=== PATIENT | female | born 1955 | race Caucasian/White ===

== ENCOUNTER 2023-09-23 09:03 | Outpatient (AMB) | payer MEDICARE, MEDICAID, SELFPAY ==
--- NOTE | 2023-09-23 09:05 | A.OFFVIS_ITS ---
Intake Vital Signs 3 09/23/23 09:11 Height 5 ft 4 in Weight 123 lb 2 oz BMI 21.1 BP 121/69 Blood Pressure Location Rt brachial Position Sitting Pulse 94 Pulse Source Pulse Oximeter Pulse Oximetry (%) 95 Oxygen Delivery Method Room Air Intake Visit Reasons: Pain left subcostal upper abd/LMOVM Intake Note: Pain today 06/27 Electronic Game Developer Required: No Accompanied by: Self / Same As Patient Allergies No Known Allergies Allergy (Verified 09/23/23 09:13) HPI Pain left subcostal upper abd/LMOVM 2 HPI0 Details Patient is a pleasant 67 years old female with prior history of a robotic left upper lobectomy and mediastinal lymphadenectomy for a 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 Per referral intake, her postoperative course following her surgery was complicated by extensive subcutaneous emphysema requiring bilateral infraclavicular blowhole creation, right sided pneumothorax requiring chest tube placement with severe respiratory distress and PEA arrest and HCAP. Since then she has recovered and has been followed by CT scan every 3 months without evidence of recurrence or new disease. She has upcoming lung CT scan this month and thereafter will be biannually. Patient reports recent cold symptoms and bronchitis 2-3 weeks ago. She was treated with albuterol inhaler, prednisone and Musinex with good results. Her current pain is localized to mid back with anterior radiation to her abdomen, worse on the left subcostal area She was treated for neurogenic pain with gabapentin, Tylenol, NSAIDs, heating pad with mild pain relief. She recently tried cannabis edible with almost complete resolution of her pain symptoms. She was referred to us by Thoracic Surgeon Dr. Méndez for interventional treatments for possible injection. Denies any fever, weight loss, shortness of breaths, chest pain, cough, hemoptysis, dizziness, numbness, tinging, rash, swelling or itching. Location Upper back radiates to upper abdominal area bilaterally, worse on the left Duration Chronic pain for >1 year Characteristics of symptom or complaint Dull, aching, stabbing, burning Aggravating or associated factors Movements, pulling, lifting, coughing, side sleeping Relieving factors Heating pad, Tylenol, Naproxen, gabapentin, cannabis edible Treatment PT in 2021, no relief PFSH Medical History (Updated 09/23/23 @ 20:55 by JIM Jackson) Neurogenic pain Cancer of upper lobe of left lung Bipolar 1 disorder Social History Alcohol intake: current Alcohol intake frequency: holidays/special occasions only Patient Tobacco Use Status: Former Tobacco user Review of Systems Const All systems reviewed & are unremarkable except as noted in HPI and below Physical Exam Vital Signs: Last Vital Signs Pulse 94 09/23/23 09:11 BP 121/69 09/23/23 09:11 Pulse Ox 95 09/23/23 09:11 Oxygen Delivery Method Room Air 09/23/23 09:11 BMI result Body Mass Index 21.1 General: Appears afebrile. Alert and oriented. Mood and affect appropriate. Follows and participates in conversation appropriately.+post nasal drip Able to transition from sit to stand unassisted. Ambulates with bilaterally normal heel strike and toe off. Neck Neck: Yes full ROM, Yes no lymphadenopathy, Yes supple, No anterior neck swelling, Yes no JVD, No prominent supraclavicular fat pad and No prominent dorsocervical fat pad Chest Other: Wounds are well healed with normal scarring. Tenderness to palpation in the left thoracic cage along the T6-T8 intercostal nerves. Chest palpation & inspection: normal inspection of the chest, normal palpation of entire chest wall, no crepitus, no localized rib tenderness, no tenderness and No rash Breast/axilla palpation: no axillary lymphadenopathy Resp Effort & Inspection: normal respiratory effort, able to speak in complete sentences, no audible wheezes, Actively coughing Quality: productive, no respiratory distress and symmetric chest movement Back/Spine/Pelvis Cervical Spine: cervical ROM normal and No Cervical spine tenderness Thoracic/Lumbar Spine: thoracic and lumbar spine normal to inspection, Thoracic/lumbar spine scar(s), thoraco-lumbar ROM normal, No paraspinal muscle tenderness, No thoracic spinal tenderness and No lumbar spinal tenderness Results Reviewed Results Reviewed: Assessment & Plan Assessment & Plan (1) Neurogenic pain: Code(s): M79.2 - Neuralgia and neuritis, unspecified (2) Muscle spasm: Code(s): M62.838 - Other muscle spasm (3) Chronic pain syndrome: Code(s): G89.4 - Chronic pain syndrome (4) Intercostal neuralgia: Code(s): G58.8 - Other specified mononeuropathies (5) Post-thoracotomy pain syndrome: Code(s): G89.12 - Acute post-thoracotomy pain Plan Discussed interventional treatments for intercostal neurogenic and post- thoracotomy pain syndrome. Patient is hesitant towards injections and would like to consider medical management. Scripts sent for duloxetine, baclofen, lidocaine patches, and diclofenac potassium. Side effects, precautions and administration times were discussed with patient in greater detail. If no relief, will consider left T12-L1 diagnostic intercostal nerve block. All questions and concerns have been answered and patient agreed with the plan. Follow up for medication review and sooner as needed. Medications: New 2 duloxetine 30 mg PO DAILY 30 days 30 caps 0RF pain G89.4 - Chronic pain syndrome, M62.838 - Other muscle spasm, M79.2 - Neuralgia and neuritis, unspecified lidocaine 5% leave on most painful area for up to 12 hrs topically daily; 30 days 30 ea 0RF G58.8 - Other specified mononeuropathies, G89.4 - Chronic pain syndrome, M79.2 - Neuralgia and neuritis, unspecified diclofenac potassium Take it with food and full glass of water. Avoid other NSAIDs. 50 mg PO BID 30 days PRN 60 tabs 0RF pain G89.12 - Acute post-thoracotomy pain, G89.4 - Chronic pain syndrome, M79.2 - Neuralgia and neuritis, unspecified baclofen 10 mg PO BID 30 days PRN 60 tabs 0RF muscle spasm M62.838 - Other muscle spasm, M79.2 - Neuralgia and neuritis, unspecified Coding Level of Care Code New Pt Level 4 (80040) Diagnoses Neurogenic pain M79.2 Muscle spasm M62.838 Chronic pain syndrome G89.4 Intercostal neuralgia G58.8 Post-thoracotomy pain syndrome G89.12
[2023-09-23 09:11] VITALS: BP 121/69; PULSE 94; O2SAT 95; BMI 21.1
== END 2023-09-23 09:39 | disposition home or self-care (01) ==
PROVIDERS: PCP Internal Medicine; Visit Provider Nurse Practitioner Family
DX: M79.2 Neuralgia and neuritis, unspecified (principal); M62.838 Other muscle spasm; G89.4 Chronic pain syndrome; G89.12 Acute post-thoracotomy pain
CPT/HCPCS: 99204

== ENCOUNTER → 2023-09-23 09:03 | Outpatient (BNVA) | payer MEDICARE, MEDICAID, SELFPAY | PROVIDERS: PCP Internal Medicine; Visit Provider Nurse Practitioner Family | DX: G89.4 Chronic pain syndrome (principal); M62.838 Other muscle spasm; G58.8 Other specified mononeuropathies; G89.12 Acute post-thoracotomy pain | CPT/HCPCS: 99202 ==

== ENCOUNTER 2023-10-21 08:39 | Outpatient (AMB) | payer MEDICARE, MEDICAID, SELFPAY ==
[2023-10-21 08:39] VITALS: BMI 22.3
--- NOTE | 2023-10-21 08:39 | MHC.OFFVIS ---
Intake Vital Signs 10/21/23 08:39 Height 5 ft 4 in Weight 130 lb BMI 22.3 Intake Visit Reasons: MEDICATION FOLLOW UP/OK PER RUY/lvm Wellness Spa Manager Required: No Accompanied by: Self / Same As Patient Allergies No Known Allergies Allergy (Verified 10/21/23 08:40) HPI HPI Comments History of Present Illness Details Patient presents today via telehealth encounter to review medications. Patient presents with coughing and reports dyspnea with minimal exertion. She reports seeing her soft work cigar machine operator recently and was prescribed Albuterol nebulizer treatments. She denies any fever, dizziness, chest pain or pressure, headache or shortness of breaths at rest. Patient reports baclofen has not been effective so she stopped it. Reports minimal response with duloxetine but has not tried lidocaine patches yet. She reports cannabis edible has been the most effective so far but she does not want continuous use of it. Patient requests to proceed with intercostal nerve block which we have scheduled for 11/05/[address] Arango. 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 Per referral intake, her postoperative course following her surgery was complicated by extensive subcutaneous emphysema requiring bilateral infraclavicular blowhole creation, right sided pneumothorax requiring chest tube placement with severe respiratory distress and PEA arrest and HCAP. Since then she has recovered and has been followed by CT scan every 3 months without evidence of recurrence or new disease. She has upcoming lung CT scan this month and thereafter will be biannually. Patient reports recent cold symptoms and bronchitis 2-3 weeks ago. She was treated with albuterol inhaler, prednisone and Musinex with good results. Her current pain is localized to mid back with anterior radiation to her abdomen, worse on the left subcostal area She was treated for neurogenic pain with gabapentin, Tylenol, NSAIDs, heating pad with mild pain relief. She recently tried cannabis edible with almost complete resolution of her pain symptoms. She was referred to us by Thoracic Surgeon Dr. Méndez for interventional treatments for possible injection. Denies any fever, weight loss, shortness of breaths, chest pain, cough, hemoptysis, dizziness, numbness, tinging, rash, swelling or itching. Location Upper back radiates to upper abdominal area bilaterally, worse on the left Duration Chronic pain for >1 year Characteristics of symptom or complaint Dull, aching, stabbing, burning Aggravating or associated factors Movements, pulling, lifting, coughing, side sleeping Relieving factors Heating pad, Tylenol, Naproxen, gabapentin, cannabis edible Treatment PT in 2021, no relief PFSH Medical History Neurogenic pain Cancer of upper lobe of left lung Bipolar 1 disorder Social History Alcohol intake: current Alcohol intake frequency: holidays/special occasions only Patient Tobacco Use Status: Former Tobacco user Review of Systems Const All systems reviewed & are unremarkable except as noted in HPI and below Reports as per HPI, Reports difficulty sleeping, Reports fatigue, Denies fever(s), Denies headache(s), Denies malaise, Denies poor appetite, Denies stops breathing during sleep, Denies weakness and Denies weight loss ENT Reports Normal hearing present, Denies dizziness, Denies headache(s), Denies nasal congestion and Denies sore throat Card Denies chest pain with activity, Denies leg edema, Denies lightheadedness, Denies palpitations, Reports dyspnea on exertion and Denies orthopnea Resp Reports as per HPI, Denies chest congestion, Reports cough, Denies hemoptysis, Denies pain on inspiration, Reports dyspnea on exertion, Denies stridor and Denies wheezing Neuro Reports Normal hearing present, Denies confusion, Denies dizziness, Denies headache(s) and Denies weakness Psych Denies confusion Endo Reports fatigue and Denies palpitations Aller/Immun Denies wheezing Physical Exam Vital Signs: BMI result Body Mass Index 22.3 Const General: cooperative, alert and awake; No confusion Orientation/consciousness: patient oriented x3 and No confusion Resp Effort & Inspection: able to speak in complete sentences, no audible wheezes and no cough Neuro General: patient oriented x3 and No confusion Cranial nerves: Yes Normal hearing present Cognition (Neuro): normal cognition Psych Mental Status: mental status grossly normal Speech and movement: Clear speech present Affect: normal affect Attitude: cooperative Thought process: Normal thought process present Thought content: Normal thought content present and No Depressive thoughts present Insight: Good insight present (Psych) Judgement: Good judgement present (Psych) Results Reviewed Results Reviewed: Assessment & Plan Assessment & Plan (1) Neurogenic pain: Code(s): M79.2 - Neuralgia and neuritis, unspecified (2) Chronic pain syndrome: Code(s): G89.4 - Chronic pain syndrome (3) Intercostal neuralgia: Code(s): G58.8 - Other specified mononeuropathies (4) Post-thoracotomy pain syndrome: Code(s): G89.12 - Acute post-thoracotomy pain Plan Proceed with left T6-T8 diagnostic intercostal nerve block with local and fluoroscopy as planned for 11/05/23. Expectations, risks and benefits were reviewed again with patient today. Continue duloxetine and may start lidocaine patches. Follow up with Appliance Worker if coughing and dyspnea on exertion symptoms are worsening. All questions and concerns have been answered and patient agreed with the plan. Follow up after injection and sooner as needed. I hereby testify that I spent 11 minutes in conversation with this patient as well as with planning and coordinating care for this patient and organizing this note. Telehealth Telehealth Location of provider rendering services: practice address Location of patient: address on file Patient Identification confirmed using: Name, : Yes Telehealth method: voice only Patient verbally consented to treatment: Yes Patient verbally consented to billing insurance company: Yes Patient informed of any privacy concerns related to visit: Yes Minutes spent on Phone/Video with Pt.: 11 Coding Level of Care Code Tele Est Pt Level 3 (32379) Diagnoses Neurogenic pain M79.2 Chronic pain syndrome G89.4 Intercostal neuralgia G58.8 Post-thoracotomy pain syndrome G89.12
== END 2023-10-21 08:51 | disposition home or self-care (01) ==
PROVIDERS: PCP Internal Medicine; Visit Provider Nurse Practitioner Family
DX: G89.4 Chronic pain syndrome (principal); M79.2 Neuralgia and neuritis, unspecified; G89.12 Acute post-thoracotomy pain
CPT/HCPCS: 99442

== ENCOUNTER → 2023-10-21 08:39 | Outpatient (BNVA) | payer MEDICARE, MEDICAID, SELFPAY | PROVIDERS: PCP Internal Medicine; Visit Provider Nurse Practitioner Family ==

== ENCOUNTER 2023-11-05 05:21 | Outpatient (REF) | payer MEDICARE, MEDICAID, SELFPAY ==
--- NOTE | ~2023-11-05 | FL_ITS ---
EXAMINATION: XR FLUOROSCOPY WITH IMAGES CLINICAL INFORMATION: Other specified mononeuropathies. COMPARISON: None available. TECHNIQUE: Fluoroscopy Supervised By: Dr. Andrez Arango. Fluoroscopy Time: 0.4 minutes. Cumulative Dose: 5.23 mGy. DAP: 0.527 Gycm2. Images: 6. FINDINGS: Images demonstrate needle placement and contrast injection inferior to 3 consecutive left ribs. FL/FL guidance in treatment room IMPRESSION: Fluoroscopy guidance for left rib pain management procedure.
== END 2023-11-05 05:22 | disposition home or self-care (01) ==
LOC: CF 05:21
PROVIDERS: Visit Provider Anesthesiology
DX: G58.8 Other specified mononeuropathies (principal); M79.2 Neuralgia and neuritis, unspecified; G89.4 Chronic pain syndrome; G89.12 Acute post-thoracotomy pain
CPT/HCPCS: 64420; 77002; J2795

== ENCOUNTER 2023-11-05 13:19 | Outpatient (AMB) | payer MEDICARE, MEDICAID, SELFPAY ==
--- NOTE | 2023-11-05 13:41 | A.OFFVIS_ITS ---
Intake Vital Signs 11/05/23 16:08 11/05/23 16:09 Height 5 ft 4 in 5 ft 4 in Weight 130 lb 130 lb BMI 22.3 22.3 BP 106/64 98/62 Blood Pressure Location Lt brachial Lt brachial Position Sitting Sitting Respiration 14 14 Pulse 99 88 Pulse Source Pulse Oximeter Pulse Oximeter Pulse Oximetry (%) 97 98 Oxygen Delivery Method Room Air Room Air Comment pre-op post-op Intake Visit Reasons: LEFT T6, T7, T8 DIAGNOSTIC INTERCOSTAL NERVE BLOCK Intake Note: 2:30 pm 02: 98 P: 88 2:45 pm 02: 97 p: 88 3:00 pm 02: 96 p: 88 3:15 pm 02: 97 p: 87 3:30 pm 02: 95 p: 88 Allergies No Known Allergies Allergy (Verified 11/12/23 14:13) PFS Medical History (Updated 11/28/23 @ 12:22 by Francoise Constantino RN) Cardiac arrest Collapsed lung Neurogenic pain Cancer of upper lobe of left lung Bipolar 1 disorder Surgical History (Updated 11/28/23 @ 12:22 by Francoise Constantino RN) History of lung surgery Social History Alcohol intake: current Alcohol intake frequency: holidays/special occasions only Patient Tobacco Use Status: Former Tobacco user Physical Exam Vital Signs: Last Vital Signs Pulse 88 11/05/23 16:09 Resp 14 11/05/23 16:09 BP 98/62 11/05/23 16:09 Pulse Ox 98 11/05/23 16:09 Oxygen Delivery Method Room Air 11/05/23 16:09 BMI result Body Mass Index 22.3 Assessment & Plan Assessment & Plan (1) Neurogenic pain: Code(s): M79.2 - Neuralgia and neuritis, unspecified (2) Chronic pain syndrome: Code(s): G89.4 - Chronic pain syndrome (3) Intercostal neuralgia: Code(s): G58.8 - Other specified mononeuropathies (4) Post-thoracotomy pain syndrome: Code(s): G89.12 - Acute post-thoracotomy pain Plan: Diagnostic intercostal 6, 7, 8 nerve block. Informed consent was explained thoroughly to the patient. All questions about benefits and risks for the procedure were answered. Patient came to the operating room and was positioned prone on the operating table . Time out was performed delineating name and of the patient, allergies and the nature of the procedure. The lef side of the chest of the patient were prepped with ChloraPrep prepped and draped with sterile utility towels. C-arm was brought over the operating field and counting from the first rib the 6, 7 and 8 ribs were delineated on the screen the point of interest were delineated as lower border of the each rib at 6 cm away from the midline. The needle insertion points were chosen as positions 2 cm medial and 1 cm below the target points. those points were injected with lidocaine 2% 2 mls. After that 25 gauge 3.5 inch needle was inserted sequentially through the skin wheals and advanced to the points of interest under fluoroscopy view. Then the tip of the needle gently contacted the rib border in was advanced few mm further and under the the rib into the subcostal sulcus. Injection of the contrast was performed demonstrating no intra-pleural and no intravascular s pread of the contrast. After that 2 mls of Ropivacaine 0.5% was injected into the each needle position. Upon completion of the injections the needle was removed , sterile bandaids were applied. The patient tolerated procedure well. she was observed postoperatively for one hour and reposted no shortness of breath and no pain in the left side of the chest her pulse oxymetry was stable as above. Plan Proceed with left T6-T8 diagnostic intercostal nerve block with local and fluoroscopy as planned for 11/05/23. Expectations, risks and benefits were reviewed again with patient today. Continue duloxetine and may start lidocaine patches. Follow up with Employee Wellness/Fitness Coordinator if coughing and dyspnea on exertion symptoms are worsening. All questions and concerns have been answered and patient agreed with the plan. Follow up after injection and sooner as needed. I hereby testify that I spent 11 minutes in conversation with this patient as well as with planning and coordinating care for this patient and organizing this note. Orders: Orders FL guidance in treatment room 11/05/23 G58.8 - Other specified mononeuropathies Coding Level of Care Code Procedure Only Diagnoses Neurogenic pain M79.2 Chronic pain syndrome G89.4 Intercostal neuralgia G58.8 Post-thoracotomy pain syndrome G89.12
[2023-11-05 16:08] VITALS: BP 106/64; PULSE 99; RESP 14; O2SAT 97; BMI 22.3
[2023-11-05 16:09] VITALS: BP 98/62; PULSE 88; RESP 14; O2SAT 98; BMI 22.3
== END 2023-11-05 14:59 | disposition home or self-care (01) ==
LOC: HO.PMCPRC 13:20
PROVIDERS: PCP Internal Medicine; Visit Provider Anesthesiology
DX: M79.2 Neuralgia and neuritis, unspecified (principal); G89.4 Chronic pain syndrome; G89.12 Acute post-thoracotomy pain
CPT/HCPCS: 64420; 77002

== ENCOUNTER → 2023-11-12 14:07 | Outpatient (BNVA) | payer MEDICARE, MEDICAID, SELFPAY | PROVIDERS: PCP Internal Medicine; Visit Provider Registered Nurse Emergency | DX: M79.2 Neuralgia and neuritis, unspecified (principal); G58.8 Other specified mononeuropathies; G89.12 Acute post-thoracotomy pain; G89.4 Chronic pain syndrome | CPT/HCPCS: 99212 ==

== ENCOUNTER 2023-11-12 14:08 | Outpatient (AMB) | payer MEDICARE, MEDICAID, SELFPAY ==
[2023-11-12 14:13] VITALS: BP 138/63; PULSE 95; RESP 18; O2SAT 96; BMI 22.2
--- NOTE | 2023-11-12 14:13 | A.OFFVIS_ITS ---
Intake Vital Signs 3 11/12/23 14:13 Height 5 ft 4 in Weight 129 lb 8 oz BMI 22.2 BP 138/63 Blood Pressure Location Lt brachial Position Sitting Respiration 18 Pulse 95 Pulse Source Pulse Oximeter Pulse Oximetry (%) 96 Oxygen Delivery Method Room Air Intake Visit Reasons: LEFT T6, T7, T8 DIAGNOSTIC INTERCOSTAL NB/lvm Allergies No Known Allergies Allergy (Verified 11/12/23 14:13) HPI HPI Comments 2 History of Present Illness0 Details Cesia presents back to the office today 1 week status post left T6-T8 intercostal nerve blocks. Patient reports 80% pain relief in the 2 hours after the procedure, 70% pain relief for hours after the procedure and 60% pain relief 6 hours after the procedure. She reports improvement in function and mobility. After the procedure she did house cleaning, more than she would normally be able to do but did take her time. She states that she was able to be more productive after the nerve blocks. Pain returned the following day when she woke up. Prior: Patient presents today via telehealth encounter to review medications. Patient presents with coughing and reports dyspnea with minimal exertion. She reports seeing her shaker repairer recently and was prescribed Albuterol nebulizer treatments. She denies any fever, dizziness, chest pain or pressure, headache or shortness of breaths at rest. Patient reports baclofen has not been effective so she stopped it. Reports minimal response with duloxetine but has not tried lidocaine patches yet. She reports cannabis edible has been the most effective so far but she does not want continuous use of it. Patient requests to proceed with intercostal nerve block which we have scheduled for 11/05/[address] Arango. 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 Per referral intake, her postoperative course following her surgery was complicated by extensive subcutaneous emphysema requiring bilateral infraclavicular blowhole creation, right sided pneumothorax requiring chest tube placement with severe respiratory distress and PEA arrest and HCAP. Since then she has recovered and has been followed by CT scan every 3 months without evidence of recurrence or new disease. She has upcoming lung CT scan this month and thereafter will be biannually. Patient reports recent cold symptoms and bronchitis 2-3 weeks ago. She was treated with albuterol inhaler, prednisone and Musinex with good results. Her current pain is localized to mid back with anterior radiation to her abdomen, worse on the left subcostal area She was treated for neurogenic pain with gabapentin, Tylenol, NSAIDs, heating pad with mild pain relief. She recently tried cannabis edible with almost complete resolution of her pain symptoms. She was referred to us by Thoracic Surgeon Dr. Méndez for interventional treatments for possible injection. Denies any fever, weight loss, shortness of breaths, chest pain, cough, hemoptysis, dizziness, numbness, tinging, rash, swelling or itching. Location Upper back radiates to upper abdominal area bilaterally, worse on the left Duration Chronic pain for >1 year Characteristics of symptom or complaint Dull, aching, stabbing, burning Aggravating or associated factors Movements, pulling, lifting, coughing, side sleeping Relieving factors Heating pad, Tylenol, Naproxen, gabapentin, cannabis edible Treatment PT in 2021, no relief PFSH Medical History Neurogenic pain Cancer of upper lobe of left lung Bipolar 1 disorder Social History Alcohol intake: current Alcohol intake frequency: holidays/special occasions only Patient Tobacco Use Status: Former Tobacco user Review of Systems Const All systems reviewed & are unremarkable except as noted in HPI and below Physical Exam Vital Signs: Last Vital Signs Pulse 95 11/12/23 14:13 Resp 18 11/12/23 14:13 BP 138/63 11/12/23 14:13 Pulse Ox 96 11/12/23 14:13 Oxygen Delivery Method Room Air 11/12/23 14:13 BMI result Body Mass Index 22.2 General: awake, alert, oriented. Answers questions appropriately. Fully engaged in examination. Skin: warm, dry, intact HEENT: Normocephalic. Hearing intact. Cardiac: External chest normal in appearance. Respiratory: No cough, audible wheezing or stridor. Abdomen: without gross distension. MS: No obvious swelling or deformities. Able to transition from sit to stand unassisted. Ambulates with bilaterally normal heel strike and toe off Neurological: Oriented to person, place, time and situation. Thought process intact. Psychiatric: Appropriate mood and affect. Good judgment and insight. Results Reviewed Results Reviewed: Assessment & Plan Assessment & Plan (1) Neurogenic pain: Code(s): M79.2 - Neuralgia and neuritis, unspecified (2) Chronic pain syndrome: Code(s): G89.4 - Chronic pain syndrome (3) Intercostal neuralgia: Code(s): G58.8 - Other specified mononeuropathies (4) Post-thoracotomy pain syndrome: Code(s): G89.12 - Acute post-thoracotomy pain Plan: Diagnostic intercostal 6, 7, 8 nerve block. Plan Patient presented to the office today 1 week status post left diagnostic T6 T7 T8 intercostal nerve blocks. Patient reports average of 70% pain relief in the hours after the procedure with improvement in function and mobility. Discussed options for treatment including diagnostic interventional testing, epidural steroid injections, peripheral nerve stimulation with Sprint, RFA and more permanent neuromodulation. Informational pamphlets provided. Will schedule for Fluoroscopy guided Left T6 Sprint PNS with local anesthetic. All questions and concerns have been answered and patient agrees with the plan. Follow up after Sprint, sooner if needed. Coding Level of Care Code Est Pt Level 3 (57728) Diagnoses Neurogenic pain M79.2 Chronic pain syndrome G89.4 Intercostal neuralgia G58.8 Post-thoracotomy pain syndrome G89.12
== END 2023-11-12 14:29 | disposition home or self-care (01) ==
PROVIDERS: PCP Internal Medicine; Visit Provider Registered Nurse Emergency
DX: M79.2 Neuralgia and neuritis, unspecified (principal); G89.4 Chronic pain syndrome; G89.12 Acute post-thoracotomy pain
CPT/HCPCS: 99213

== ENCOUNTER 2023-11-28 12:01 | Day surgery (SDC) | payer MEDICARE, MEDICAID, SELFPAY ==
--- NOTE | ~2023-11-28 | FL_ITS ---
EXAMINATION: XR FLUOROSCOPY WITH IMAGES CLINICAL INFORMATION: T6 SPRINT COMPARISON: None available. TECHNIQUE: Fluoroscopy Supervised By: Dr. Andrez Arango. Fluoroscopy Time: 0.2 minutes. Cumulative Dose: 1.23 mGy. DAP: 01.78 Gycm2. Images: 2. FINDINGS: Imaging guidance was utilized for procedure. 2 images were saved and are available for review. These demonstrate a introducer overlying a rib/thoracic spine. Final image demonstrates a wire, presumably nerve stimulator lead overlying the same level. FL/FL guidance in OR IMPRESSION: Imaging guidance for procedure. Please refer to procedural report for findings and further detail.
[2023-11-28 12:23] VITALS: BMI 18.4
--- NOTE | 2023-11-28 13:22 | MHC.SHP ---
Pre-Procedural Eval Section A Date of Service: 11/28/23 Section B Chief Complaint: Other specified mononeuropathies Details of Present Illness: INTERCOSTAL NEURALGIA Relevant Family History (Specify if Yes): No Relevant Social History: None Present Medications: see Short Stay Collaborative assessment Medical History: No relevant PMH History of Previous Operations: No relevant previous surgery Allergies: Allergies Allergy/AdvReac Type Severity Reaction Status Date / Time No Known Allergies Allergy Verified 11/12/23 14:13 Review of Systems Sugical H&P ROS: Negative: Cardiovascular, Respiratory, Neurological, Psychiatric, Hem-Onc, Allergic/Immunologic, Gastrointestinal, Genitourinary, Musculoskeletal, Integumentary, Endocrine and Eyes/Ears/Nose/Throat and Yes, Specify: Constitution (VERY THIN) Exam Surgical H&P Exam: Normal: HEENT, Normal: Heart, Normal: Lungs, Normal: Extremities, Normal: Abdomen, Normal: Skin and Normal: Neurological Plan Diagnosis/Plan: Unchanged I have reviewed the history and physical and performed a pertinent physical examination on my patient. No changes have occurred unless specified. I WILL PERFORM LEFT INTERCOSTAL RIB 7 PERIPHERAL NERVE STIMULATION SPRINT, POSSIBLY RIB SIX POSSIBLY RIB 8 PERIPHERAL NERVE STIMULATION SPRINT. Time Spent With Patient Time: Total time managing care of this patient today __10__ minutes.
--- NOTE | 2023-11-28 13:58 | W.PM.OPN ---
Operative Note Operative Note Date of Service: 11/28/23 Narrative: Sprint PNS ribs 7 intercostal nerve After the risks, benefits and alternatives were discussed with the patient and informed consent was obtained, patient was placed in the prone position and padded to foster comfort. Time out was performed delineating correct site and side of the procedure , name and of the patient, patient participated in time out procedure. the lower back of the patient was prepped with ChloraPrep and draped with full body fenestrated drape. ?Sterily draped C-arm was brought over the operating field and clear picture of the lumbar spine was demonstrated on the screen. Left rib 7 was chosen as the target of the tip of the needle position. Projection of the 7th vertebra was chosen as the start of the needle advancement. That point was chosen as the local anesthetic infiltration point. After identifying and marking the intended target, the skin around the planned entry point and the subcutaneous tissues were injected with local anesthetic forming skin wheal.. ?A percutaneous sleeve and stimulating probe lead introduction system were assembled, inserted and advanced through the skin wheal to the? point of interest under C-arm view magnified vision fashion, the introducer needle was delivered to a location in proximity to the 2 mm below the level of the lower margin of the 7th rib on the left in the projection of the paravertebral and mid scapular lines.. Multiple stimulation parameters were used to deliver stimulation to the? nerve in concert with stimulating at multiple positions around the nerve. 3 positions were tried: in the most medial point of the lamina most lateral poin of the lamina and one point in between of those two. The mid - position was given the most of the stimulation to the patient. Nerve target acquisition was confirmed noting generation of? in the? corresponding to the nerve being stimulated. Various electrical parameter combinations were tested, and the lead location was adjusted? until the patient indicated? overlapping the distribution of the patient?s typical region of pain. The stimulating probe was removed from the introducer and a percutaneous lead was guided through the needle and delivered to a location in similar proximity to the nerve. Final location was verified with electrical stimulation. The introducer needle was removed, and the exposed end of the percutaneous lead was attached to an external stimulator unit. Various electrical parameter combinations were again tested until the patient indicated paresthesia or muscle tension overlapping the distribution of the patient?s typical region of pain. After confirming that lead impedance was in the normal range, the external unit was detached, the needle was removed, and the lead was anchored at the skin. The lead was threaded into the connector block and electrical continuity and desired patient response was confirmed. The connector block was attached to the external stimulator unit. The site was covered with a sterile occlusive dressing and an? image was taken to document final placement. ?Upon completion of the procedure the patient was taken outside the OR where she recovered uneventfully she went home without immediate complications.
[2023-11-28 14:06] VITALS: BP 125/57; PULSE 81; RESP 18; TEMP 37.2; O2SAT 97
--- NOTE | 2023-11-28 14:08 | PM.OP ---
Brief Operative Note Date of Service: 11/28/23 Pre-op diagnosis: Intercostal neuralgia Post-op diagnosis: same Surgeon: Andrez Arango MD Anesthesia: local Was an [employer]ist used for this Procedure?: No Estimated blood loss (mL): 0 Condition: stable Disposition: PACU
== END 2023-11-28 14:27 | disposition home or self-care (01) ==
PROVIDERS: PCP Internal Medicine; Visit Provider Anesthesiology
PROC: (CPT 64555; principal; 2023-11-28 13:30)
DX: G58.0 Intercostal neuropathy (principal); G89.4 Chronic pain syndrome; G58.8 Other specified mononeuropathies; C34.12 Malignant neoplasm of upper lobe, left bronchus or lung; Z87.891 Personal history of nicotine dependence
CPT/HCPCS: 64555; C1778; J2795

== ENCOUNTER → 2023-11-28 12:01 | Outpatient (BNV) | payer MEDICARE, MEDICAID, SELFPAY | PROVIDERS: PCP Internal Medicine; Visit Provider Anesthesiology | DX: G58.0 Intercostal neuropathy (principal) | CPT/HCPCS: 64555 ==

== ENCOUNTER 2024-02-12 13:57 | Outpatient (AMB) | payer MEDICARE, MEDICAID, SELFPAY ==
[2024-02-12 14:08] VITALS: BP 124/74; PULSE 101; RESP 16; O2SAT 96; BMI 17.4
--- NOTE | 2024-02-12 14:08 | A.OFFVIS_ITS ---
Intake Vital Signs 3 02/12/24 14:08 Height 5 ft 4 in Weight 101 lb 6 oz BMI 17.4 BP 124/74 Blood Pressure Location Lt brachial Position Sitting Respiration 16 Pulse 101 H Pulse Source Pulse Oximeter Pulse Oximetry (%) 96 Oxygen Delivery Method Room Air Intake Visit Reasons: Sprint removal Allergies No Known Allergies Allergy (Verified 02/12/24 14:08) HPI HPI Comments 2 History of Present Illness0 Details Cesia presents back to the office for left 7th rib intercostal sprint PNS Patient is over due for removal, originally was due for removal 3 weeks ago. She missed the removal appointment in has been too busy to make it to the office. Denies fever, chills, drainage from site, swelling, redness. She reports continued 70% pain relief with improvement in function and mobility since having the sprint PNS placed Denies any untoward effects Prior: Cesia presents back to the office today 1 week status post left T6-T8 intercostal nerve blocks. Patient reports 80% pain relief in the 2 hours after the procedure, 70% pain relief for hours after the procedure and 60% pain relief 6 hours after the procedure. She reports improvement in function and mobility. After the procedure she did house cleaning, more than she would normally be able to do but did take her time. She states that she was able to be more productive after the nerve blocks. Pain returned the following day when she woke up. Prior: Patient presents today via telehealth encounter to review medications. Patient presents with coughing and reports dyspnea with minimal exertion. She reports seeing her hospice admitting clerk recently and was prescribed Albuterol nebulizer treatments. She denies any fever, dizziness, chest pain or pressure, headache or shortness of breaths at rest. Patient reports baclofen has not been effective so she stopped it. Reports minimal response with duloxetine but has not tried lidocaine patches yet. She reports cannabis edible has been the most effective so far but she does not want continuous use of it. Patient requests to proceed with intercostal nerve block which we have scheduled for 11/05/[address] Arango. 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 Per referral intake, her postoperative course following her surgery was complicated by extensive subcutaneous emphysema requiring bilateral infraclavicular blowhole creation, right sided pneumothorax requiring chest tube placement with severe respiratory distress and PEA arrest and HCAP. Since then she has recovered and has been followed by CT scan every 3 months without evidence of recurrence or new disease. She has upcoming lung CT scan this month and thereafter will be biannually. Patient reports recent cold symptoms and bronchitis 2-3 weeks ago. She was treated with albuterol inhaler, prednisone and Musinex with good results. Her current pain is localized to mid back with anterior radiation to her abdomen, worse on the left subcostal area She was treated for neurogenic pain with gabapentin, Tylenol, NSAIDs, heating pad with mild pain relief. She recently tried cannabis edible with almost complete resolution of her pain symptoms. She was referred to us by Thoracic Surgeon Dr. Méndez for interventional treatments for possible injection. Denies any fever, weight loss, shortness of breaths, chest pain, cough, hemoptysis, dizziness, numbness, tinging, rash, swelling or itching. Location Upper back radiates to upper abdominal area bilaterally, worse on the left Duration Chronic pain for >1 year Characteristics of symptom or complaint Dull, aching, stabbing, burning Aggravating or associated factors Movements, pulling, lifting, coughing, side sleeping Relieving factors Heating pad, Tylenol, Naproxen, gabapentin, cannabis edible Treatment PT in 2021, no relief PFSH Medical History (Updated 11/28/23 @ 12:22 by Francoise Constantino RN) Cardiac arrest Collapsed lung Neurogenic pain Cancer of upper lobe of left lung Bipolar 1 disorder Surgical History (Updated 11/28/23 @ 12:22 by Francoise Constantino RN) History of lung surgery Social History Alcohol intake: current Alcohol intake frequency: holidays/special occasions only Patient Tobacco Use Status: Former Tobacco user Review of Systems Const All systems reviewed & are unremarkable except as noted in HPI and below Physical Exam Vital Signs: Last Vital Signs Pulse 101 H 02/12/24 14:08 Resp 16 02/12/24 14:08 BP 124/74 02/12/24 14:08 Pulse Ox 96 02/12/24 14:08 Oxygen Delivery Method Room Air 02/12/24 14:08 BMI result Body Mass Index 17.4 General: awake, alert, oriented. Answers questions appropriately. Fully engaged in examination. Skin: warm, dry, intact HEENT: Normocephalic. Hearing intact. Cardiac: External chest normal in appearance. Respiratory: No cough, audible wheezing or stridor. Abdomen: without gross distension. MS: No obvious swelling or deformities. Neurological: Oriented to person, place, time and situation. Thought process intact. Psychiatric: Appropriate mood and affect. Good judgment and insight. Sprint removal: Dressing removed, Site dry, clean, intact. Area cleansed with chloraprep, lead removed with intact tip. Area cleansed again with chloraprep, bacitracin dressing with tegaderm applied. Patient tolerated removal well. Results Reviewed Results Reviewed: Assessment & Plan Assessment & Plan (1) Neurogenic pain: Code(s): M79.2 - Neuralgia and neuritis, unspecified (2) Chronic pain syndrome: Code(s): G89.4 - Chronic pain syndrome (3) Intercostal neuralgia: Code(s): G58.8 - Other specified mononeuropathies (4) Post-thoracotomy pain syndrome: Code(s): G89.12 - Acute post-thoracotomy pain Plan Patient presented to the office today for left 7th rib intercostal sprint PNS removal Patient was overdue for removal, there is no swelling, erythema, pathological discharge noted at the site. Patient has no signs of local or systemic infection. Patient reports continues with 70% pain relief and improvement in function and mobility. Discussed options for treatment with implantable stimulation device if pain is to return. All questions and concerns have been answered and patient agrees with the plan. Follow up if pain returns, sooner if needed. Coding Level of Care Code Est Pt Level 3 (68467) Diagnoses Neurogenic pain M79.2 Chronic pain syndrome G89.4 Intercostal neuralgia G58.8 Post-thoracotomy pain syndrome G89.12
== END 2024-02-12 14:14 | disposition home or self-care (01) ==
PROVIDERS: PCP Internal Medicine; Visit Provider Registered Nurse Emergency
DX: M79.2 Neuralgia and neuritis, unspecified (principal); G89.4 Chronic pain syndrome; G89.12 Acute post-thoracotomy pain
CPT/HCPCS: 99213

== ENCOUNTER → 2024-02-12 13:57 | Outpatient (BNVA) | payer MEDICARE, MEDICAID, SELFPAY | PROVIDERS: PCP Internal Medicine; Visit Provider Registered Nurse Emergency | DX: Z45.42 Encounter for adjustment and management of neurostimulator (principal); M79.2 Neuralgia and neuritis, unspecified; G89.4 Chronic pain syndrome; G89.12 Acute post-thoracotomy pain | CPT/HCPCS: 99212 ==